=== PATIENT | male | born 1965 | race Caucasian/White ===

== ENCOUNTER 2018-05-30 06:00 | Day surgery (SDC) | payer OTHER ==
[2018-05-29] MEDS: NS 1,000 ML IV SCH (12:21)
[~2018-05-30 06:00] MED LIST: FLUMAZENIL 0.5 MG/5 ML MDV IVP ONE; FLUMAZENIL 0.5 MG/5 ML MDV IVP PRN; MEPERIDINE 25 MG/ML SYR IVP PRN; MIDAZOLAM 2 MG/2 ML VIAL IVP PRN; MIDAZOLAM 2 MG/2 ML VIAL ONE; NALOXONE HCL 0.4 MG/ML INJ IVP PRN; NALOXONE HCL 0.4 MG/ML INJ ONE; fentaNYL 100 MCG/2 ML INJ IVP PRN; fentaNYL 100 MCG/2 ML INJ ONE
[2018-05-30] MEDS ORDERED: HEPARIN 10,000 UNIT/10 ML MDV (1,000 UNIT/ML) IVP PRN (06:26)
[2018-05-30] MEDS ORDERED: fentaNYL 100 MCG/2 ML INJ IVP PRN (06:26)
[2018-05-30] MEDS ORDERED: FLUMAZENIL 0.5 MG/5 ML MDV IVP PRN (06:26)
[2018-05-30] MEDS ORDERED: MIDAZOLAM 2 MG/2 ML VIAL IVP PRN (06:26)
[2018-05-30] MEDS ORDERED: NALOXONE HCL 0.4 MG/ML INJ IVP PRN (06:26)
[2018-05-30] MEDS ORDERED: MEPERIDINE 25 MG/ML SYR IVP PRN (06:26)
[2018-05-30] MEDS ORDERED: NS 1,000 ML IV SCH (06:30)
[2018-05-30] MEDS: NS 1,000 ML IV SCH (06:57)
[2018-05-30] MEDS ORDERED: IOPAMIDOL (ISOVUE-300) 100 ML BTL ONE (07:05)
--- NOTE | 2018-05-30 07:20 | PDPROPOC ---
Sedation Plan of Care Sedation Plan of Care: vital signs stable, mental status noted, patient educated of risks, benefits, alternatives, patient can tolerate sedation ASA Classification: ASA 2 Planned drugs: fentanyl, midazolam Mallampati Score: Class 2 Mallampati Reference Image: Patient passed 3-3-2 rule?: Yes
--- NOTE | 2018-05-30 07:20 | PDHPUP ---
History & Physical Update H&P update statement: This history and physical update is based on an assessment of the patient which was completed after admission or registration (within 24 hours), but prior to the surgery/procedure. H&P update: H&P reviewed & patient examined, no change in patient's condition since H&P completed
[2018-05-30] MEDS ORDERED: OXYCODONE/APAP 5/325 TAB PO PRN (07:24)
[2018-05-30] MEDS ORDERED: ONDANSETRON 4 MG/2 ML VIAL IVP PRN (07:24)
[2018-05-30 08:11] VITALS: BP 118/69
--- NOTE | 2018-05-30 08:14 | PDCONSULT ---
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
== END 2018-05-30 11:30 | disposition home or self-care (01) ==
LOC: FIMAGING 06:00
PROVIDERS: ATTEND Neurological Surgery
DX: I67.1 Cerebral aneurysm, nonruptured (principal)
CPT/HCPCS: 36224; 36226; 99152; C1769; J1644; J2250; J2310; J3010; Q9967

== ENCOUNTER 2018-06-26 10:56 | Inpatient (IN) | payer OTHER ==
[2018-06-26 12:01] LABS: PLATELET COUNT 325 10^3/uL (150-400)
[2018-06-26 12:10] LABS: INR 1.03 (0.83-1.16); PROTIME(PATIENT) 13.1 SEC (12.0-15.0)
[2018-06-26] MEDS ORDERED: IOPAMIDOL (ISOVUE-300) 100 ML BTL ONE (12:26)
[2018-06-26] MEDS ORDERED: MIDAZOLAM 2 MG/2 ML VIAL IVP ONE (13:27)
[2018-06-26] MEDS ORDERED: MIDAZOLAM 2 MG/2 ML VIAL ONE (13:27)
--- NOTE | 2018-06-26 13:28 | PDANEPAE ---
ANE Past Medical History - Cardiovascular History Hx Hypertension: No Hx Arrhythmias: No Hx Chest Pain: No Hx Coronary Artery / Peripheral Vascular Disease: No Hx CHF / Valvular Disease: No Hx Palpitations: No - Pulmonary History Hx COPD: No Hx Asthma/Reactive Airway Disease: No Hx Recent Upper Respiratory Infection: No Hx Oxygen in Use at Home: No Hx Sleep Apnea: No Sleep Apnea Screening Result - Last Documented: Negative - Neurologic History Hx Cerebrovascular Accident: No Hx Seizures: No Hx Dementia: No - Endocrine History Hx Diabetes: No Hypothyroid: No Hyperthyroid: No Obesity: yes, mild - Renal History Hx Renal Disorders: No - Liver History Hx Hepatic Disorders: No - Neurological & Psychiatric Hx Hx Neurological and Psychiatric Disorders: No - Cancer History Hx Cancer: No - Congenital Disorder History Hx Congenital Disorders: No - GI History GERD: no Hx Gastrointestinal Disorders: No - Other Health History Other Health History: essential tremors - Chronic Pain History Chronic Pain: Yes - Surgical History Prior Surgeries: nose surgeries ANE Review of Systems Review of Systems: - Exercise capacity Exercise capacity: >=4 METS METS (RN): 6 METS ANE Patient History - Allergies Allergies/Adverse Reactions: No Known Allergies Allergy (Unverified 05/29/18 10:49) - Home Medications Home Medications: [place]-3 1 tab PO DAILY 05/29/18 [Last Taken 05/29/18] Vit C/Ascorb Sod/Multivit-Min 1 tab PO DAILY 05/29/18 [Last Taken 05/29/18] Vit D3-Vit K/Berberine/Hops 1 tab PO DAILY 05/29/18 [Last Taken 05/29/18] - Anes Hx Anes Hx: no prior problems - Smoking Hx Smoking Status: Never smoked Marijuana use: No - Alcohol Use Alcohol Use: Occasionally - Family Anes Hx Family Anes Hx: neg - N/A Family Hx Anesthesia Complications: no ANE Labs/Vital Signs - Labs Result Diagrams: 06/26/18 11:45 06/26/18 11:45 - Vital Signs Blood Pressure: 117/76 Heart Rate: 75 Respiratory Rate: 15 O2 Sat (%): 92 Height: 185.42 cm Weight: 108.862 kg ANE Physical Exam - Airway Neck exam: FROM Mallampati Score: Class 2 Mouth exam: normal dental/mouth exam - Pulmonary Pulmonary: no respiratory distress, no rales or rhonchi, clear to auscultation - Cardiovascular Cardiovascular: regular rate and rhythym, no murmur, rub, or gallop - ASA Status ASA Status: II ANE Anesthesia Plan Anesthesia Plan: general endotracheal anesthesia Lines/Monitors: arterial line Total IV Anesthesia: No
[2018-06-26] MEDS ORDERED: REMIFENTANIL HCL 1 MG VIAL ONE (13:36)
[2018-06-26] MEDS ORDERED: PROPOFOL/EMULSION 500 MG/50 ML BOTTLE IV ONE (13:36)
[2018-06-26] MEDS ORDERED: PROPOFOL 200 MG/20 ML VIAL ONE (13:36)
[2018-06-26] MEDS ORDERED: ONDANSETRON 4 MG/2 ML VIAL ONE (13:36)
[2018-06-26] MEDS ORDERED: ROCURONIUM 100 MG/10 ML VIAL ONE (13:36)
[2018-06-26] MEDS ORDERED: fentaNYL 100 MCG/2 ML INJ ONE (13:36)
[2018-06-26] MEDS ORDERED: DEXAMETHASONE 4 MG/ML VIAL ONE (13:36)
[2018-06-26] MEDS ORDERED: LIDOCAINE 2% 5 ML SDV ONE (13:38)
[2018-06-26] MEDS ORDERED: ONDANSETRON 4 MG/2 ML VIAL IVP PRN ×2 (14:05→16:45)
[2018-06-26] MEDS ORDERED: OXYCODONE/APAP 5/325 TAB PO PRN (14:05)
[2018-06-26] MEDS ORDERED: NS 1,000 ML IV SCH (14:15)
[2018-06-26] MEDS ORDERED: hydrALAZINE 20 MG/ML VIAL IVP PRN (14:21)
[2018-06-26] MEDS ORDERED: PHENYLEPHRINE HCL 100 MCG/ML SYR ONE ×2 (14:23→15:08)
[2018-06-26] MEDS ORDERED: ePHEDrine SULFATE 25 MG/5 ML SYR ONE (14:36)
[2018-06-26] MEDS ORDERED: HEPARIN 10,000 UNIT/10 ML MDV (1,000 UNIT/ML) ONE ×2 (14:38→15:08)
[2018-06-26] MEDS ORDERED: ROCURONIUM 50 MG/5 ML VIAL ONE (15:11)
[2018-06-26] MEDS ORDERED: SUGAMMADEX SODIUM 200 MG/2 ML VIAL IVP ONE (16:04)
[2018-06-26] MEDS ORDERED: niCARdipine/NACL/200 ML BAG IV ONE (16:12)
--- NOTE | 2018-06-26 16:26 | POSTOPPROG ---
Post Op Note Date of Operation: 06/26/18 Surgeon: Bright Shine Anesthesia: GET(General Endotracheal) Pre-op Diagnosis: Unruptured acomm aneurysm Post-op Diagnosis: same Procedure: Endovascular stent-coil embolization of acomm aeurysm Inf/Abcess present in the surg proc area at time of surgery?: No EBL: Minimal Complications: none observed SOAP Progress Note Assessment/Plan: Assessment: Plan: 06/26/18 16:22 S: Patient in PACU. Stable O: NAD, VSS CN II-XII grossly intact PERRL, EOMI BLOOM X4 to command Speech fluent Right groin site c/d/i Pulses intact bilaterally A: 53 yo male sp stent-coil embolization of acomm aneurysm P: -Admit to Step Down Unit -Q2 hour neuro checks -SBP 90-140 -Bed REst and extremity flat for 3 hours then may get up and out of bed -DC home in am if doing well -Must stay on Plavix for 6 months,and ASA indefinitely -Call with any questions or concerns Objective: Vital Signs Temp Pulse Resp BP Pulse Ox 36.6 C 75 15 117/76 92 06/26/18 12:15 06/26/18 13:28 06/26/18 13:28 06/26/18 13:28 06/26/18 13:28 Laboratory Results 06/26/18 11:45 06/26/18 11:45 PT 13.1 SEC (12.0-15.0) 06/26/18 11:45 INR 1.03 (0.83-1.16) 06/26/18 11:45
[2018-06-26] MEDS ORDERED: NALOXONE HCL 0.4 MG/ML INJ IVP PRN (16:45)
[2018-06-26] MEDS ORDERED: PHENYLEPHRINE HCL 100 MCG/ML SYR IVP PRN (16:45)
[2018-06-26] MEDS ORDERED: PROMETHAZINE HCL 25 MG/ML INJ IVP PRN (16:45)
[2018-06-26] MEDS ORDERED: ACETAMINOPHEN 500 MG TAB PO PRN (16:45)
[2018-06-26] MEDS ORDERED: LR 500 ML IV PRN (16:45)
--- NOTE | 2018-06-26 16:46 | POSTANESTH ---
Post Anesthetic Evaluation Cardiovascular Status: Normal, Stable Respiratory Status: Normal, Stable Level of Consciousness/Mental Status: Can Participate in Eval Pain Control: Adequate, Prn Tx Ordered Nausea/Vomiting Control: Adequate, Prn Tx Ordered Complications Possibly Related to Anesthesia: None Noted
[2018-06-26] MEDS ORDERED: ASPIRIN 81 MG CHEWABLE TAB PO SCH (18:16)
[2018-06-26] MEDS ORDERED: CLOPIDOGREL BISULFATE 75 MG TAB PO SCH (18:30)
--- NOTE | 2018-06-27 06:59 | PDCONSULT ---
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
--- NOTE | 2018-06-27 08:21 | PDMN ---
Medical Necessity Medical necessity: [facility] neurology [id number] INPT only OP: endovascular stent-coil embolization of Acomm aneurysm
[2018-06-27 08:26] VITALS: BP 116/80
[2018-06-27] MEDS ORDERED: ASPIRIN 325 MG TAB PO SCH (09:00)
[2018-06-27] MEDS ORDERED: CLOPIDOGREL BISULFATE 75 MG TAB PO SCH (09:00)
--- NOTE | 2018-06-27 09:18 | ASMTCMCOM ---
CM Note CM Note Notes: Pt's chart reviewed. Jeronimo admitted for a stent & coiling on 05/29 & embolization of Acomm Aneurysm. Hx of CABG & Stents. Pt to will be discharge home with . His sister will pick him up at 10a. Case Management available for needs. PLAN: Home independently with . Date Signed: 06/27/2018 09:17 AM Electronically Signed By:Marah Dumont
--- NOTE | 2018-06-27 09:22 | ASMTLACE ---
ANTON Length of stay for Answers: 1 day current admission Acuity / Level of Answers: Yes Care: Did the patient have an inpatient admission? Comorbidities - select Answers: Opioid dependence all that apply / Chronic pain # of Emergency department Answers: 0 visits in the last 6 months Score: 8 Date Signed: 06/27/2018 09:21 AM Electronically Signed By:Marah Dumont
== END 2018-06-27 10:08 | disposition home or self-care (01) | DRG 27 ==
LOC: F3N 10:56 → EDSTATUS 11:30 → F2N 18:00
PROVIDERS: ADMIT Neurological Surgery; ATTEND Neurological Surgery
PROC: 03V Upper Arteries, Restriction (ICD-10-PCS; principal; 2018-06-26)
DX: I67.1 Cerebral aneurysm, nonruptured (principal); G25.0 Essential tremor
CPT/HCPCS: C1760; C1769; C1887; C1892; C1894; J1100; J1644; J2250; J2370; J2405; J2704; J3010; Q9967